=== PATIENT | male | born 1965 | race Caucasian/White ===

== ENCOUNTER 2016-12-27 06:18 | Day surgery (SDC) | payer MEDICARE, BC ==
[~2016-12-27] VITALS: Ht 165.1 cm; Wt 109.0 kg
[~2016-12-27 06:18] MED LIST: AMLO-145 PO; ASPI81TA3 PO; BENA40TA54 PO; CARV25TA79 PO; CLOP75TA27 PO; FURO20TA3 PO; HYDR-3671 PO; ISOS10TA45 PO; MULT1TAB59 PO
[2016-12-27] MEDS ORDERED: ATORVASTATIN (06:57)
[2016-12-27] MEDS ORDERED: HCTZ (06:57)
[2016-12-27 07:36] VITALS: Ht 165.1 cm; Wt 109.0 kg
[2016-12-27 08:08] VITALS: BP 145/79; RESP 14
[2016-12-27] MEDS ORDERED: MIDAZOLAM 1 MG/ML 2 ML INJ ONE (08:38)
[2016-12-27] MEDS ORDERED: LIDOCAINE 2% (SDV) 5 ML INJ ONE (08:38)
[2016-12-27] MEDS ORDERED: PROPOFOL 20 ML ONE (08:38)
--- NOTE | 2016-12-27 09:02 | OPPN ---
Date/Time of Note Date/Time of Note DATE: 12/27/16 TIME: 09:01 Operative Report Preoperative Diagnosis Change in bowel habit Screening colonoscopy Postoperative Diagnosis Rectal polyp was biopsied Internal hemorrhoids Operation/Procedure Performed Colonoscopy and biopsy Provider: JAIR WOODARD MD Anesthesia Type: MAC Estimated blood loss: none Transfusion Required: no Specimens Rectal polyp biopsy Grafts/Implants: none Complications: no JAIR WOODARD MD Dec 27, 2016 09:02
--- NOTE | 2016-12-27 10:05 | GILP ---
DATE OF PROCEDURE: 12/27/2016 NAME OF THE PROCEDURE: Colonoscopy and biopsy. SURGEON: Sergo Wallace MD. PREOPERATIVE DIAGNOSES: 1. Change in bowel habits. 2. Screening colonoscopy. POSTOPERATIVE DIAGNOSES: 1. Colonoscopy all the way to the cecum. 2. Small rectal polyp was biopsied. 3. Internal hemorrhoids. INDICATIONS FOR PROCEDURE: The patient is a 51-year-old male patient who had a change in the bowel habits. He needed a screening colonoscopy. The procedure and possible complications were well explained to the patient, he understood and consented to the procedure. PROCEDURE: Under the influence of anesthesia, the colonoscope was carefully introduced into the rectum. Under direct vision, it was advanced all the way to the cecum. FINDINGS: The patient had a small rectal polyp and it was biopsied. The patient was noted to have internal hemorrhoids. He tolerated the procedure very well and there was no complication from the procedure. At the end of the procedure, he was awake with stable vital signs. He was discharged home in the care of his family. IMPRESSION: 1. Colonoscopy all the way to the cecum. 2. Small rectal polyp was biopsied. 3. Internal hemorrhoids. PLAN: 1. Await histopathology report. 2. Next screening colonoscopy in 10 years. . Dictated By: MD ALVA Abdalla/carolyne/rio /Document#: [id number]
== END 2016-12-27 16:17 | disposition home or self-care (01) ==
LOC: GIL 06:18
PROVIDERS: ATTEND Internal Medicine Gastroenterology
DX: Z12.11 Encounter for screening for malignant neoplasm of colon (principal); K62.1 Rectal polyp; K64.8 Other hemorrhoids; E66.01 Morbid (severe) obesity due to excess calories; Z68.41 Body mass index [BMI] 40.0-44.9, adult; I10 Essential (primary) hypertension; I69.359 Hemiplegia and hemiparesis following cerebral infarction affecting unspecified side
CPT/HCPCS: 45380; 88305; J2250